=== PATIENT | female | born 1970 | race Caucasian/White ===

== ENCOUNTER 2018-08-28 12:23 | Emergency (ER) | payer OTHER ==
[~2018-08-28] VITALS: Ht 170.2 cm; Wt 68.0 kg
[2018-08-28 12:24] VITALS: BP 118/74
== END 2018-08-28 12:45 | disposition home or self-care (01) ==
LOC: ER 12:23
DX: S01.01XD Laceration without foreign body of scalp, subsequent encounter (principal); W18.39XD Other fall on same level, subsequent encounter